=== PATIENT | male | born 1940 | race African-American/Black ===

== ENCOUNTER 2018-09-07 12:55 | Inpatient (IN) | payer MEDICARE ==
[~2018-09-07] VITALS: Ht 190.5 cm; Wt 82.6 kg
--- NOTE | ~2018-09-07 | MORECARE ---
CASE MANAGEMENT DISCHARGE SUMMARY PATIENT: NICOLASA MAJOR UNIT: [id number] ADM DATE: 09/07/18 AGE: 77 : 38 SEX: M ROOM/BED: D.2133 AUTHOR: ESTRELLA,DOC PHYSICIAN: REFERRING PHYSICIAN: TURNER WILLIAMSON MD DATE OF SERVICE: 09/11/18 Discharge Plan Patient Name: NICOLASA MAJOR Facility: [facility]:[place] : 1940 Planned Disposition: Home Anticipated Discharge Date: 09/09/18 Discharge Date: 09/09/2018 Expected LOS: 2 Initial Reviewer: [email or web address] Initial Review Date: 09/07/2018 Generated: 09/11/18 11:04 am Comments DCP- Discharge Planning Updated by [email or web address]: Shaka Babcock on 09/08/18 4:[address] Patient Name: NICOLASA MAJOR Admission Status: ER Accout number: [id number] Admission Date: 09-07-2018 : 1940 Admission Diagnosis: Attending: TURNER WILLIAMSON Current LOS: 1 Anticipated DC Date: Planned Disposition: Home Primary Insurance: [facility] MEDICARE SOLUTIONS Discharge Planning Comments: CM RECEIVED ORDER FOR INPATIENT REHAB PRESCREEN. CM MET WITH PT IN ROOM TO DISCUSS DISCHARGE PLANNING AND NEEDS. PT REPORTS LIVING AT HOME INDEPENDENTLY WITH HIS SPOUSE. PT HAS NO MEDICAL EQUIPMENT AND NO OUTSIDE SERVICES ASSISTING IN THE HOME. CM DISCUSSED AVAILABILITY OF HOME HEALTH, REHAB SERVICES AND MEDICAL EQUIPMENT. PT DENIES DISCHARGE NEEDS, REPORTS HE DOES NOT THINK HE NEEDS REHAB SERVICES AT THIS TIME AND THAT HIS WILL PICK HIM UP FOR DISCHARGE HOME. PT WILL THINK ABOUT HOME HEALTH AND DISCUSS THIS WITH HIS AND LET CM KNOW IF HE NEEDS IT. PT DECLINES INPATIENT REHAB, PLANS TO GO HOME WITH SPOUSE. PT MAY CONSIDER HOME HEALTH AND WILL DISCUSS THIS SERVICE WITH HIS . CM TO FOLLOW AND ASSIST IF NEEDED. Electrotherapist: Shaka Babcock DCPIA - Discharge Planning Initial Assessment Updated by [email or web address]: Shaka Babcock on 09/08/18 5:04 pm * Is the patient Alert and Oriented? Yes * How many steps to enter\exit or inside your home? NONE * PCP DR. ANN * [facility] * Preadmission Environment Home with Family * ADLs Independent * Equipment None * Other Equipment NO MEDICAL EQUIPMENT PROVIDER PREFERENCE * List name and contact numbers for known caregivers / representatives who currently or will assist patient after discharge: GE MAJOR, SPOUSE, * Verbal permission to speak to the caregivers and representatives has been obtained from the patient. Yes * Community resources currently utilized None * Please name any agencies selected above. NONE * Additional services required to return to the preadmission environment? No * Can the patient safely return to the preadmission environment? Yes * Has this patient been hospitalized within the prior 30 days at any hospital? No Last DP export: 09/08/18 4:06 Patient Name: NICOLASA MAJOR Page [phone] at 1004 All edits/amendments must be made on the electronic document DICTATION DATE: 09/11/181002 PREDICTIVE MAINTENANCE TECHNICIAN: IVÁN 09/11/18 100 RPT#: [id number] DC DATE:09/09/18 STATUS: DIS IN [facility] [address] [place] [address] END OF REPORT
--- NOTE | ~2018-09-07 | EC ---
PATIENT:NICOLASA MAJOR DATE OF SERVICE: 09/07/18 SEX: M MEDICAL RECORD: [id number] DATE OF : 36 LOCATION:D.M2 D.213 AGE OF PATIENT: 77 ADMISSION DATE: 09/07/18 REFERRING PHYSICIAN: INTERPRETING PHYSICIAN: SONAL KILGORE MD ECHOCARDIOGRAM REPORT ECHO CHARGES 4 ECHO COMPLETE Date: 09/08/18 CLINICAL DIAGNOSIS: CHEST PAIN,, HX HTN ECHOCARDIOGRAPHIC MEASUREMENTS (adult normal given) AC root (d.<3.7cm) 4.7 cm LV Septum d (<1.2 cm> 1.4 cm Valve Excursion 1.4 cm LV Septum (systole) 1.5 cm Left Atria (s.<4.0cm> 4.3 cm LVPW d(<1.2cm) 1.4 cm RV (d.<2.3cm) 4.5 cm LVPW (sytole) 2.0 cm LV diastole(<5.6CM) 7.5 cm MV E-F(>70mm/sec) cm LV systole 6.3 cm LVOT Diameter 2.1 cm MV exc.(>10mm) cm Est.ejection fraction (50-75%) % DOPPLER: LVIT cm/sec A 97.0 cm/sec E 66.0 cm/sec LA cm/sec RVSP 43 mmHg LVOT 100 cm/sec AOP1/2T 330 m/s Asc. Ao 141 cm/sec RVOT cm/sec RA cm/sec PA cm/sec AV Gradient Peak 7.99 mmHg AV Mean 4.07 mmHg AV Area 2.1 cm MV Gradient Peak 5.94 mmHg MV Mean 2.64 mmHg MV Area cm COMMENTS: City Treasurer: Bay MOFFETT Concentrator Operator: Tal Kilgore TAPE# PACS Pericardial Effusion N DATE OF SERVICE: PROCEDURE: The patient has a transthoracic echocardiogram. FINDINGS: 1. The left ventricle shows concentric left ventricular hypertrophy. Inflow characteristics consistent with diastolic dysfunction, ejection fraction of 20% to 25%. 2. Left atrium is moderately dilated. 3. The aortic valve has mild aortic stenosis and moderate aortic insufficiency. ECHOCARDIOGRAM REPORT [id number] NICOLASA MAJOR 4. The mitral valve has severe mitral regurgitation. 5. Tricuspid valve has moderate severe tricuspid regurgitation with a RVSP of 40 to 50 mmHg. 6. The right ventricle and right atrium are moderately dilated. 7. The pulmonic valve shows mild pulmonic insufficiency. 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 Also, has valvular heart disease with bpahmlke-yi-xchnir mitral valve regurgitation with evidence of mild pulmonary hypertension. TRANSINT:[id number] Voice Confirmation ID: [id number] DOCUMENT ID: [id number] SONAL KILGORE MD at 0916 CC: [id number] DICTATION DATE: 09/08/18 1321 FITNESS INSTRUCTOR: 09/08/18 1525 ADM IN [facility] [address] [id number]
--- NOTE | ~2018-09-07 | MORECARE ---
CASE MANAGEMENT DISCHARGE SUMMARY PATIENT: NICOLASA MAJOR UNIT: [id number] ADM DATE: 09/07/18 AGE: 77 : 38 SEX: M ROOM/BED: D.2133 AUTHOR: ESTRELLA,DOC PHYSICIAN: REFERRING PHYSICIAN: TURNER WILLIAMSON MD DATE OF SERVICE: 09/08/18 Discharge Plan Patient Name: NICOLASA MAJOR Facility: [facility]:[place] : 1940 Planned Disposition: Home Anticipated Discharge Date: Discharge Date: Expected LOS: Initial Reviewer: [email or web address] Initial Review Date: 09/07/2018 Generated: 09/08/18 6:06 pm Comments DCP- Discharge Planning Updated by [email or web address]: Shaka Babcock on 09/08/18 4:[address] Patient Name: NICOLASA MAJOR Admission Status: ER Accout number: [id number] Admission Date: 09-07-2018 : 1940 Admission Diagnosis: Attending: TURNER WILLIAMSON Current LOS: 1 Anticipated DC Date: Planned Disposition: Home Primary Insurance: [facility] MEDICARE SOLUTIONS Discharge Planning Comments: CM RECEIVED ORDER FOR INPATIENT REHAB PRESCREEN. CM MET WITH PT IN ROOM TO DISCUSS DISCHARGE PLANNING AND NEEDS. PT REPORTS LIVING AT HOME INDEPENDENTLY WITH HIS SPOUSE. PT HAS NO MEDICAL EQUIPMENT AND NO OUTSIDE SERVICES ASSISTING IN THE HOME. CM DISCUSSED AVAILABILITY OF HOME HEALTH, REHAB SERVICES AND MEDICAL EQUIPMENT. PT DENIES DISCHARGE NEEDS, REPORTS HE DOES NOT THINK HE NEEDS REHAB SERVICES AT THIS TIME AND THAT HIS WILL PICK HIM UP FOR DISCHARGE HOME. PT WILL THINK ABOUT HOME HEALTH AND DISCUSS THIS WITH HIS AND LET CM KNOW IF HE NEEDS IT. PT DECLINES INPATIENT REHAB, PLANS TO GO HOME WITH SPOUSE. PT MAY CONSIDER HOME HEALTH AND WILL DISCUSS THIS SERVICE WITH HIS . CM TO FOLLOW AND ASSIST IF NEEDED. Religious Ritual Slaughterer: Shaka Babcock DCPIA - Discharge Planning Initial Assessment Updated by [email or web address]: Shaka Babcock on 09/08/18 5:04 pm * Is the patient Alert and Oriented? Yes * How many steps to enter\exit or inside your home? NONE * PCP DR. ANN * [facility] * Preadmission Environment Home with Family * ADLs Independent * Equipment None * Other Equipment NO MEDICAL EQUIPMENT PROVIDER PREFERENCE * List name and contact numbers for known caregivers / representatives who currently or will assist patient after discharge: GE MAJOR, SPOUSE, * Verbal permission to speak to the caregivers and representatives has been obtained from the patient. Yes * Community resources currently utilized None * Please name any agencies selected above. NONE * Additional services required to return to the preadmission environment? No * Can the patient safely return to the preadmission environment? Yes * Has this patient been hospitalized within the prior 30 days at any hospital? No Patient Name: NICOLASA MAJOR Page [phone] at 1707 All edits/amendments must be made on the electronic document DICTATION DATE: 09/08/181705 ELECTRIC ARC FURNACE OPERATOR: IVÁN 09/08/181705 RPT#: [id number] DC DATE: STATUS: ADM IN [facility] [address] [place] [address] END OF REPORT
[2018-09-07] MEDS ORDERED: BAYER CHEWABLE81 MG (13:00)
[2018-09-07] MEDS ORDERED: HYDRALAZINE HC100 MG PO (13:01)
[2018-09-07] MEDS ORDERED: POTASSIUM20 MEQ/11 PO (13:01)
[2018-09-07] MEDS ORDERED: LISINOPRIL5 MG (13:01)
[2018-09-07] MEDS ORDERED: LOVASTATIN20 MG (13:01)
[2018-09-07] MEDS ORDERED: RANEXA500 MG (13:01)
[2018-09-07] MEDS ORDERED: LEVOXYL50 MCG (13:01)
[2018-09-07] MEDS ORDERED: TOPROL XL25 MG PO (13:01)
[2018-09-07 13:31] LABS: BASOPHILS 0.8 % (0-2); EOSINOPHILS 0.8 % (0-7); HEMATOCRIT 33.7 % (42.0-54.0); HEMOGLOBIN 11.6 g/dL (13.5-17.5); IMMATURE GRANULOCYTES 0.3 % (0-5); LYMPHOCYTES 13.8 % (15-50); MCH 27.3 pg (26.0-34.0); MCHC 34.4 g/dL (31.0-37.0); MCV 79.3 fL (80.0-100.0); MEAN PLATELET VOLUME 10.3 fL (7.4-10.4); NEUTROPHILS 68.3 % (40-80); PLATELET COUNT 280 10x3/uL (130-400); RBC 4.25 10x6/uL (4.20-6.10); RDW 14.7 % (11.5-14.5); WBC 3.7 10x3/uL (4.8-10.8)
[2018-09-07 13:33] LABS: ALBUMIN 2.9 g/dL (3.4-5.0); ALKALINE PHOSPHATASE 74 U/L (46-116); ALT (SGPT) 19 U/L (10-68); BILIRUBIN - TOTAL 0.86 mg/dL (0.2-1.3); CALC OSMOLALITY 262 mosm/kg (275-300); CALCIUM 8.5 mg/dL (8.5-10.1); CARBON DIOXIDE 26.4 mmol/L (21.0-32.0); CHLORIDE - SERUM 94 mmol/L (98-107); CREATININE - SERUM 1.2 mg/dL (0.6-1.3); GLUCOSE 136 mg/dL (74-106); POTASSIUM - SERUM 3.7 mmol/L (3.5-5.1); PROTEIN - SERUM 7.7 g/dL (6.4-8.2); SODIUM 130 mmol/L (136-145); UREA NITROGEN 13 mg/dL (7-18); eGFR NON AFRICAN AMERICAN 62 mL/min (90-120)
[2018-09-07 13:49] LABS: CKMB 1.7 U/L (0.0-3.6); CREATINE KINASE 98 UL (21-232); MAGNESIUM - SERUM 1.7 mg/dL (1.8-2.4); PRO BNP 19567 pg/mL (0-450)
[2018-09-07 17:29] LABS: CKMB 1.6 U/L (0.0-3.6); CREATINE KINASE 102 UL (21-232)
[2018-09-07 17:31] LABS: TROPONIN-I 0.238 ng/mL (0.000-0.060)
[2018-09-07] MEDS ORDERED: CENTRUM SILVER1 EAC3 PO (17:58)
[2018-09-07] MEDS ORDERED: TRAVATAN Z2.5 ML EACH EYE (17:59)
[2018-09-07 18:15] VITALS: BP 141/109; BMI 23.7
[2018-09-07 18:43] VITALS: BP 107/76
[2018-09-07 21:03] VITALS: BP 142/80
[2018-09-07 23:25] LABS: CKMB 1.6 U/L (0.0-3.6); CREATINE KINASE 94 UL (21-232)
[2018-09-07 23:29] LABS: TROPONIN-I 0.401 ng/mL (0.000-0.060)
[2018-09-08] VITALS (7 sets, daily range): BP systolic 114–156; BP diastolic 70–96; Ht 190.5 cm; Wt 82.6 kg
[2018-09-08 06:38] LABS: BASOPHILS 0.2 % (0-2); EOSINOPHILS 0.7 % (0-7); HEMATOCRIT 29.1 % (42.0-54.0); HEMOGLOBIN 9.9 g/dL (13.5-17.5); LYMPHOCYTES 16.8 % (15-50); MCH 26.5 pg (26.0-34.0); MEAN PLATELET VOLUME 11.2 fL (7.4-10.4); MONOCYTES 16.6 % (2-11); NEUTROPHILS 65.7 % (40-80); PLATELET COUNT 228 10x3/uL (130-400); RBC 3.73 10x6/uL (4.20-6.10); RDW 14.7 % (11.5-14.5)
[2018-09-08 07:25] LABS: ALBUMIN 2.5 g/dL (3.4-5.0); ALKALINE PHOSPHATASE 57 U/L (46-116); BILIRUBIN - TOTAL 1.01 mg/dL (0.2-1.3); CALC OSMOLALITY 263 mosm/kg (275-300); CALCIUM 8.1 mg/dL (8.5-10.1); CARBON DIOXIDE 24.7 mmol/L (21.0-32.0); CHLORIDE - SERUM 95 mmol/L (98-107); CKMB 2.3 U/L (0.0-3.6); CREATINE KINASE 99 UL (21-232); GLUCOSE 106 mg/dL (74-106); PROTEIN - SERUM 6.4 g/dL (6.4-8.2); SODIUM 131 mmol/L (136-145); UREA NITROGEN 14 mg/dL (7-18); eGFR NON AFRICAN AMERICAN 76 mL/min (90-120)
[2018-09-08 07:29] LABS: ALT (SGPT) 13 U/L (10-68); POTASSIUM - SERUM 3.1 mmol/L (3.5-5.1); TROPONIN-I 0.564 ng/mL (0.000-0.060)
[2018-09-09 03:50] VITALS: BP 138/82
[2018-09-09 05:17] LABS: APPEARANCE CLEAR (CLEAR); BILIRUBIN NEGATIVE (NEGATIVE); COLOR YELLOW (YELLOW); GLUCOSE NEGATIVE (NEGATIVE); KETONE NEGATIVE (NEGATIVE); NITRITE NEGATIVE (NEGATIVE); PROTEIN NEGATIVE (NEGATIVE); SPECIFIC GRAVITY 1.015 (1.005-1.020); UROBILINOGEN NORMAL (NORMAL)
[2018-09-09 07:50] VITALS: BP 139/78
[2018-09-09 10:27] LABS: BASOPHILS 0.2 % (0-2); EOSINOPHILS 0.4 % (0-7); HEMATOCRIT 34.8 % (42.0-54.0); IMMATURE GRANULOCYTES 0.2 % (0-5); LYMPHOCYTES 14.4 % (15-50); MCH 27.1 pg (26.0-34.0); MCHC 34.5 g/dL (31.0-37.0); MCV 78.7 fL (80.0-100.0); MEAN PLATELET VOLUME 11.1 fL (7.4-10.4); MONOCYTES 10.9 % (2-11); NEUTROPHILS 73.9 % (40-80); PLATELET COUNT 257 10x3/uL (130-400); RBC 4.42 10x6/uL (4.20-6.10); RDW 14.9 % (11.5-14.5); WBC 5.2 10x3/uL (4.8-10.8)
[2018-09-09 10:30] LABS: ANION GAP 13.5 mmol/L (8-16); CALCIUM 8.8 mg/dL (8.5-10.1); CREATININE - SERUM 1.1 mg/dL (0.6-1.3); MAGNESIUM - SERUM 1.8 mg/dL (1.8-2.4); POTASSIUM - SERUM 3.5 mmol/L (3.5-5.1)
[2018-09-09 11:09] VITALS: BP 138/82
[2018-09-09] MEDS ORDERED: LASIX40 MG PO (11:25)
[2018-09-09 15:11] VITALS: BP 133/72
== END 2018-09-09 15:47 | disposition home or self-care (01) | DRG 281 ==
LOC: D.ER 12:55 → D.EDHOLD 16:29 → D.M2 16:29
PROVIDERS: Family Medicine; Internal Medicine Nephrology
DX: I11.0 Hypertensive heart disease with heart failure (principal); I21.4 Non-ST elevation (NSTEMI) myocardial infarction; E87.1 Hypo-osmolality and hyponatremia; I50.9 Heart failure, unspecified; I25.10 Atherosclerotic heart disease of native coronary artery without angina pectoris; Z98.61 Coronary angioplasty status; I42.9 Cardiomyopathy, unspecified; E87.6 Hypokalemia; D50.9 Iron deficiency anemia, unspecified; Z87.891 Personal history of nicotine dependence

== ENCOUNTER 2018-10-20 21:33 | Inpatient (IN) | payer MEDICARE ==
[~2018-10-20] VITALS: Ht 190.5 cm; Wt 76.6 kg
[~2018-10-20 21:33] MED LIST: BAYER CHEWABLE81 MG; CENTRUM SILVER1 EAC3 PO; HYDRALAZINE HC100 MG PO; LASIX40 MG PO; LEVOXYL50 MCG PO; LISINOPRIL5 MG; LOVASTATIN20 MG PO; POTASSIUM20 MEQ/11 PO; RANEXA500 MG PO; TOPROL XL25 MG PO; TRAVATAN Z2.5 ML EACH EYE
[2018-10-20 22:06] LABS: BASOPHILS 1.1 % (0-2); EOSINOPHILS 4.3 % (0-7); HEMATOCRIT 30.8 % (42.0-54.0); HEMOGLOBIN 10.5 g/dL (13.5-17.5); IMMATURE GRANULOCYTES 0.2 % (0-5); LYMPHOCYTES 21.2 % (15-50); MCH 25.7 pg (26.0-34.0); MCHC 34.1 g/dL (31.0-37.0); MCV 75.3 fL (80.0-100.0); MEAN PLATELET VOLUME 10.6 fL (7.4-10.4); MONOCYTES 11.4 % (2-11); NEUTROPHILS 61.8 % (40-80); PLATELET COUNT 275 10x3/uL (130-400); RBC 4.09 10x6/uL (4.20-6.10); RDW 15.7 % (11.5-14.5); WBC 4.4 10x3/uL (4.8-10.8)
[2018-10-20 22:14] LABS: INR 1.33 (0.85-1.17); PROTIME 15.9 SECONDS (11.6-15.0)
[2018-10-20 22:15] LABS: APTT 33.5 SECONDS (22.8-39.4)
[2018-10-20 22:20] LABS: ALBUMIN 2.2 g/dL (3.4-5.0); ALKALINE PHOSPHATASE 59 U/L (46-116); ALT (SGPT) 16 U/L (10-68); BILIRUBIN - TOTAL 0.89 mg/dL (0.2-1.3); CALC OSMOLALITY 274 mosm/kg (275-300); CALCIUM 8.7 mg/dL (8.5-10.1); CARBON DIOXIDE 27.1 mmol/L (21.0-32.0); CHLORIDE - SERUM 97 mmol/L (98-107); CREATININE - SERUM 1.3 mg/dL (0.6-1.3); GLUCOSE 134 mg/dL (74-106); POTASSIUM - SERUM 4.7 mmol/L (3.5-5.1); PROTEIN - SERUM 7.3 g/dL (6.4-8.2); SODIUM 132 mmol/L (136-145); UREA NITROGEN 35 mg/dL (7-18); eGFR NON AFRICAN AMERICAN 56 mL/min (90-120)
[2018-10-20 22:35] LABS: CKMB 0.7 U/L (0.0-3.6); CREATINE KINASE 73 UL (21-232); PRO BNP 27894 pg/mL (0-450); TROPONIN-I 1.464 ng/mL (0.000-0.060)
[2018-10-21] MEDS ORDERED: ENTRESTO (01:51)
[2018-10-21 02:49] VITALS: BP 136/95; BMI 21.4
[2018-10-21 04:00] VITALS: BP 133/90
[2018-10-21 07:00] VITALS: BP 139/85
[2018-10-21] MEDS ORDERED: ENTRESTO 49 MG1 EACH PO (10:19)
[2018-10-21 11:00] VITALS: BP 142/72
[2018-10-21 12:43] LABS: % SATURATION 16 % (15-55); IRON 23 ug/dl (35-150); TOTAL IRON BIND CAPACITY 139 ug/dl (260-445); UNSAT IRON BIND CAPACITY 116 ug/dl (150-375)
[2018-10-21 20:25] VITALS: BP 128/77
[2018-10-22 00:30] VITALS: BP 133/88
[2018-10-22 04:45] VITALS: BP 141/96
[2018-10-22 07:28] LABS: BASOPHILS 0.4 % (0-2); EOSINOPHILS 5.9 % (0-7); HEMATOCRIT 27.8 % (42.0-54.0); HEMOGLOBIN 9.6 g/dL (13.5-17.5); IMMATURE GRANULOCYTES 0.2 % (0-5); LYMPHOCYTES 18.7 % (15-50); MCH 25.6 pg (26.0-34.0); MCHC 34.5 g/dL (31.0-37.0); MCV 74.1 fL (80.0-100.0); MEAN PLATELET VOLUME 11.1 fL (7.4-10.4); NEUTROPHILS 62.8 % (40-80); PLATELET COUNT 247 10x3/uL (130-400); RBC 3.75 10x6/uL (4.20-6.10); RDW 15.3 % (11.5-14.5); WBC 4.6 10x3/uL (4.8-10.8)
[2018-10-22 07:38] LABS: ANION GAP 14.5 mmol/L (8-16); CALCIUM 8.1 mg/dL (8.5-10.1); CARBON DIOXIDE 24.7 mmol/L (21.0-32.0); CREATININE - SERUM 1.2 mg/dL (0.6-1.3); POTASSIUM - SERUM 3.2 mmol/L (3.5-5.1)
[2018-10-22 08:25] VITALS: BP 141/95
[2018-10-22 11:32] VITALS: BP 136/86
[2018-10-22 15:54] VITALS: BP 115/72
[2018-10-22 21:20] VITALS: BP 134/85
[2018-10-23 00:57] VITALS: BP 134/88
[2018-10-23 05:53] VITALS: BP 136/87
[2018-10-23 09:20] VITALS: BP 109/71
[2018-10-23 11:59] LABS: BASOPHILS 0.9 % (0-2); EOSINOPHILS 3.9 % (0-7); HEMATOCRIT 29.3 % (42.0-54.0); HEMOGLOBIN 9.9 g/dL (13.5-17.5); MCH 25.4 pg (26.0-34.0); MCHC 33.8 g/dL (31.0-37.0); MCV 75.1 fL (80.0-100.0); MEAN PLATELET VOLUME 11.3 fL (7.4-10.4); MONOCYTES 12.2 % (2-11); PLATELET COUNT 266 10x3/uL (130-400); RDW 15.7 % (11.5-14.5); WBC 5.3 10x3/uL (4.8-10.8)
[2018-10-23 12:02] LABS: ALBUMIN 2.2 g/dL (3.4-5.0); BILIRUBIN - TOTAL 0.93 mg/dL (0.2-1.3); CALCIUM 8.6 mg/dL (8.5-10.1); CARBON DIOXIDE 26.4 mmol/L (21.0-32.0); CREATININE - SERUM 1.1 mg/dL (0.6-1.3); MAGNESIUM - SERUM 1.8 mg/dL (1.8-2.4); POTASSIUM - SERUM 3.4 mmol/L (3.5-5.1); PROTEIN - SERUM 6.9 g/dL (6.4-8.2)
[2018-10-23 14:37] VITALS: Ht 190.5 cm; Wt 76.6 kg
[2018-10-23 20:56] VITALS: BP 127/91
[2018-10-24 02:02] VITALS: BP 129/82
[2018-10-24 06:09] VITALS: BP 131/86
[2018-10-24 06:30] LABS: EOSINOPHILS 5.8 % (0-7); HEMATOCRIT 29.8 % (42.0-54.0); HEMOGLOBIN 10.1 g/dL (13.5-17.5); IMMATURE GRANULOCYTES 0.2 % (0-5); MCH 25.4 pg (26.0-34.0); MCHC 33.9 g/dL (31.0-37.0); MCV 74.9 fL (80.0-100.0); MEAN PLATELET VOLUME 10.4 fL (7.4-10.4); MONOCYTES 9.7 % (2-11); NEUTROPHILS 64.3 % (40-80); PLATELET COUNT 255 10x3/uL (130-400); RBC 3.98 10x6/uL (4.20-6.10); RDW 15.7 % (11.5-14.5); WBC 4.9 10x3/uL (4.8-10.8)
[2018-10-24 06:53] LABS: ALBUMIN 2.1 g/dL (3.4-5.0); ANION GAP 12.7 mmol/L (8-16); BILIRUBIN - TOTAL 0.99 mg/dL (0.2-1.3); CALCIUM 8.4 mg/dL (8.5-10.1); CARBON DIOXIDE 28.5 mmol/L (21.0-32.0); CREATININE - SERUM 1.2 mg/dL (0.6-1.3); MAGNESIUM - SERUM 1.7 mg/dL (1.8-2.4); POTASSIUM - SERUM 3.2 mmol/L (3.5-5.1); PROTEIN - SERUM 6.9 g/dL (6.4-8.2)
[2018-10-24 09:34] VITALS: BP 127/84
[2018-10-24 13:11] VITALS: BP 120/70
--- NOTE | 2018-10-24 16:39 | MORECARE ---
CASE MANAGEMENT DISCHARGE SUMMARY PATIENT: NICOLASA MAJOR UNIT: [id number] ADM DATE: 10/21/18 AGE: 78 : 38 SEX: M ROOM/BED: D.2140 AUTHOR: INOCENCIO DE LA ROSA PHYSICIAN: REFERRING PHYSICIAN: TURNER WILLIAMSON MD DATE OF SERVICE: 10/24/18 Discharge Plan Patient Name: NICOLASA MAJOR Facility: [facility]:[place] : 1940 Planned Disposition: Home Anticipated Discharge Date: 10/24/18 Discharge Date: Expected LOS: 3 Initial Reviewer: [email or web address] Initial Review Date: 10/24/2018 Generated: 10/24/18 5:39 pm DCPIA - Discharge Planning Initial Assessment Updated by [email or web address]: Shaka Babcock on 10/24/18 4:33 pm * Is the patient Alert and Oriented? Yes * How many steps to enter\exit or inside your home? NONE * PCP DR. ANN * [facility] * Preadmission Environment Home with Family * ADLs Independent * Equipment Rolling Walker * Other Equipment 4 WHEELED WALKER WITH SEAT AND BRAKES PROVIDER - [employer] * List name and contact numbers for known caregivers / representatives who currently or will assist patient after discharge: GE MAJORGERALDINE, * Verbal permission to speak to the caregivers and representatives has been obtained from the patient. Yes * Community resources currently utilized Home Health * Please name any agencies selected above. [facility] * Additional services required to return to the preadmission environment? No * Can the patient safely return to the preadmission environment? Yes * Has this patient been hospitalized within the prior 30 days at any hospital? No External Providers External Provider: [facility] Next Contact Date: 10/24/2018 Service Request Date: Service Type: Resolution: Reviewer: Comments: Patient Name: NICOLASA MAJOR Page [phone] at 1639 All edits/amendments must be made on the electronic document DICTATION DATE: 10/24/18 1638 PATTERN TECHNICIAN: IVÁN 10/24/18 1638 RPT#: [id number] DC DATE: STATUS: ADM IN [facility] [address] [place] [address] END OF REPORT
--- NOTE | 2018-10-24 16:52 | MORECARE ---
CASE MANAGEMENT DISCHARGE SUMMARY PATIENT: NICOLASA MAJOR UNIT: [id number] ADM DATE: 10/21/18 AGE: 78 : 38 SEX: M ROOM/BED: D.2140 AUTHOR: INOCENCIO DE LA ROSA PHYSICIAN: REFERRING PHYSICIAN: TURNER WILLIAMSON MD DATE OF SERVICE: 10/24/18 Discharge Plan Patient Name: NICOLASA MAJOR Facility: [facility]:[place] : 1940 Planned Disposition: Home Anticipated Discharge Date: 10/24/18 Discharge Date: Expected LOS: 3 Initial Reviewer: [email or web address] Initial Review Date: 10/24/2018 Generated: 10/24/18 5:52 pm Comments DCP- Discharge Planning Updated by [email or web address]: Shaka Babcock on 10/24/18 3:[address] Patient Name: NICOLASA MAJOR Admission Status: ER Accout number: [id number] Admission Date: 10-21-2018 : 1940 Admission Diagnosis: Attending: TURNER WILLIAMSON Current LOS: 3 Anticipated DC Date: 10-24-2018 Planned Disposition: Home Primary Insurance: [facility] MEDICARE SOLUTIONS Discharge Planning Comments: CM SPOKE TO DENA OF [facility] WHO INFORMED CM THAT PT IS ACTIVE WITH [facility] AND WILL RESUME AT DISCHARGE. CM MET WITH PT AND SPOUSE IN ROOM TO DISCUSS DISCHARGE PLANNING AND NEEDS. NICOLASA MAJOR provided verbal consent to discuss current and ongoing needs with/in the presence of: SPOUSE, GE. PT REPORTS LIVING AT HOME INDEPENDENTLY WITH SPOUSE. PT HAS ROLLING WALKER WITH SEAT AND BRAKES FROM [employer]. PT HAS HOME HEALTH FOR NURSING AND PHYSICAL THERAPY WITH [facility]. CM DISCUSSED AVAILABILITY OF HOME HEALTH, REHAB SERVICES AND MEDICAL EQUIPMENT. PT DENIES DISCHARGE NEEDS, PT'S SPOUSE REPORTS SHE HAS TALKED TO MONALISA AT [facility] ALREADY AND THEY ARE ON SCHEDULE FOR RESUMPTION TOMORROW. PT SPOUSE HERE TO TRANSPORT HOME TODAY,HAS DIFFICULTY DRIVING AT NIGHT. CM NOTIFIED ADMINISTRATIVE EXECUTIVE NURSE. MESSAGE FROM MEDICARE PROVIDED AND EXPLAINED. CM CALLED [facility], , SPOKE TO MONALISA WHO HAD DISCUSSED RESUMPTION WITH SPOUSE TODAY AND PT IS ALREADY ON THE SCHEDULE. CM FAXED DISCHARGE AND HOSPITAL INFORMATION TO [facility] AT [phone]. Credit Card Interviewer: Shaka Babcock DCPIA - Discharge Planning Initial Assessment Updated by [email or web address]: Shaka Babcock on 10/24/18 4:33 pm * Is the patient Alert and Oriented? Yes * How many steps to enter\exit or inside your home? NONE * PCP DR. ANN * [facility] * Preadmission Environment Home with Family * ADLs Independent * Equipment Rolling Walker * Other Equipment 4 WHEELED WALKER WITH SEAT AND BRAKES PROVIDER - [employer] * List name and contact numbers for known caregivers / representatives who currently or will assist patient after discharge: GE MAJORGERALDINE, * Verbal permission to speak to the caregivers and representatives has been obtained from the patient. Yes * Community resources currently utilized Home Health * Please name any agencies selected above. [facility] * Additional services required to return to the preadmission environment? No * Can the patient safely return to the preadmission environment? Yes * Has this patient been hospitalized within the prior 30 days at any hospital? No Coverage Notice Reviewer: [email or web address] - Shaka Babcock Notice Issued Date-Time: 10/24/2018 15:50 Notice Type: IM Discharge Notice Notice Delivered To: Family Member Relationship to Patient: Spouse Chef De Partie Name: GE MAJOR Delivery Method: HAND - Hand Delivered Cristela Days: Prior Verbal Notification: Recipient Understood Notice: Yes Recipient Signature: Yes Med Rec Note Co-signed by Attending: Coverage Notice Comment: Last DP export: 10/24/18 3:39 pm Patient Name: NICOLASA MAJOR Page [phone] at 1652 All edits/amendments must be made on the electronic document DICTATION DATE: 10/24/181651 KICK PRESS SETTER: IVÁN 10/24/181651 RPT#: [id number] DC DATE: STATUS: ADM IN [facility] [address] [place] [address] END OF REPORT
== END 2018-10-24 17:26 | disposition home health service (06) | DRG 292 ==
LOC: D.ER 21:33 → D.M2 10-21 00:30
PROVIDERS: Family Medicine; ADMIT Internal Medicine Nephrology
DX: I11.0 Hypertensive heart disease with heart failure (principal); N17.9 Acute kidney failure, unspecified; E87.1 Hypo-osmolality and hyponatremia; I50.23 Acute on chronic systolic (congestive) heart failure; I25.5 Ischemic cardiomyopathy; I44.7 Left bundle-branch block, unspecified; I25.10 Atherosclerotic heart disease of native coronary artery without angina pectoris; D50.9 Iron deficiency anemia, unspecified; E87.6 Hypokalemia; Z93.3 Colostomy status; Z95.5 Presence of coronary angioplasty implant and graft; Z87.891 Personal history of nicotine dependence